=== PATIENT | female | born 1985 | race Caucasian/White ===

== ENCOUNTER → 2020-01-14 09:00 | Outpatient (BNVA) | payer OTHER, SELFPAY | PROVIDERS: PCP Family Medicine; Visit Provider Surgery | DX: Z76.89 Persons encountering health services in other specified circumstances (principal) ==

== ENCOUNTER → 2020-02-18 08:55 | Outpatient (BNVA) | payer OTHER, SELFPAY | PROVIDERS: PCP Family Medicine; Visit Provider Surgery | DX: E66.01 Morbid (severe) obesity due to excess calories (principal); Z68.41 Body mass index [BMI] 40.0-44.9, adult; Z98.84 Bariatric surgery status | CPT/HCPCS: 99212 ==

== ENCOUNTER → 2020-03-19 07:43 | Outpatient (BNVA) | payer OTHER, SELFPAY | PROVIDERS: PCP Family Medicine; Referring Provider Family Medicine; Visit Provider Surgery | DX: E66.9 Obesity, unspecified (principal); Z68.38 Body mass index [BMI] 38.0-38.9, adult; Z71.3 Dietary counseling and surveillance | CPT/HCPCS: Q3014 ==

== ENCOUNTER → 2020-04-23 08:10 | Outpatient (BNVA) | payer OTHER, SELFPAY | PROVIDERS: PCP Family Medicine; Visit Provider Surgery | DX: E66.9 Obesity, unspecified (principal); Z68.38 Body mass index [BMI] 38.0-38.9, adult | CPT/HCPCS: Q3014 ==

== ENCOUNTER → 2020-05-30 08:19 | Outpatient (BNVA) | payer OTHER, SELFPAY | PROVIDERS: PCP Family Medicine; Visit Provider Surgery | DX: E66.9 Obesity, unspecified (principal); Z68.37 Body mass index [BMI] 37.0-37.9, adult | CPT/HCPCS: Q3014 ==

== ENCOUNTER → 2020-06-27 08:35 | Outpatient (BNVA) | payer OTHER, SELFPAY | PROVIDERS: PCP Family Medicine; Visit Provider Surgery | DX: E66.9 Obesity, unspecified (principal); Z68.34 Body mass index [BMI] 34.0-34.9, adult; Z71.3 Dietary counseling and surveillance | CPT/HCPCS: Q3014 ==

== ENCOUNTER → 2020-08-01 08:03 | Outpatient (BNVA) | payer OTHER, SELFPAY | PROVIDERS: PCP Family Medicine; Visit Provider Surgery | DX: E66.9 Obesity, unspecified (principal); Z68.33 Body mass index [BMI] 33.0-33.9, adult; Z71.3 Dietary counseling and surveillance | CPT/HCPCS: Q3014 ==

== ENCOUNTER → 2020-08-25 08:14 | Outpatient (BNVA) | payer OTHER, SELFPAY | PROVIDERS: PCP Family Medicine; Visit Provider Surgery | DX: E66.9 Obesity, unspecified (principal); Z68.33 Body mass index [BMI] 33.0-33.9, adult | CPT/HCPCS: Q3014 ==

== ENCOUNTER → 2020-10-15 07:24 | Outpatient (BNVA) | payer OTHER, SELFPAY | PROVIDERS: PCP Family Medicine; Visit Provider Surgery ==

== ENCOUNTER → 2020-12-18 08:10 | Outpatient (BNVA) | payer OTHER, SELFPAY | PROVIDERS: PCP Family Medicine; Visit Provider Physician Assistant Surgical ==

== ENCOUNTER 2021-01-17 08:19 | Outpatient (REF) | payer BC, SELFPAY ==
[2021-01-17 08:33] LABS: MANUAL DIFF FLAG NO
[2021-01-17 09:25] LABS: Basophils Percent Auto 0.6 % (0-2); Eosinophils Absolute Auto 0.1 X10*3/uL (0.0-0.4); Eosinophils Percent Auto 1.5 % (0-4); Hematocrit 37.9 % (37-47); Hemoglobin 12.4 g/dl (12.0-16.0); Imm Gran Abs Auto 0.01 X10*3/uL (0.00-0.03); Imm Gran Pct Auto 0.2 % (0.0-0.4); Lymphocytes Absolute Auto 2.3 X10*3/uL (1.2-4.9); Mean Corpuscular HGB Conc 32.7 g/dl (31.0-35.0); Mean Corpuscular Hemoglobin 29.2 pg (27.0-33.0); Mean Corpuscular Volume 89.2 fL (80-98); Mean Platelet Volume 10.7 fL (9.4-12.3); Monocytes Absolute Auto 0.3 X10*3/uL (0.1-1.2); Neutrophils Absolute Auto 3.8 X10*3/uL (2.0-8.3); Neutrophils Percent Auto 57.7 % (45-73); Platelet Count 243 X10*3/uL (160-400); Red Blood Count 4.25 X10*6/uL (4.20-5.50); Red Cell Distribution Width 13.2 % (11.0-16.0); White Blood Count 6.6 X10*3/uL (4.8-10.8)
[2021-01-17 09:36] LABS: Estimated Average Glucose 97 mg/dL; Hemoglobin A1C 102.4667 umol/L
[2021-01-17 09:54] LABS: Alanine Aminotransferase 20 U/L (0-31); Albumin Level 3.9 g/dL (3.5-5.0); Alkaline Phosphatase 77 U/L (39-117); Anion Gap 10 (12-20); Aspartate Amino Transferase 18 U/L (5-31); Bilirubin Total 0.8 mg/dL (0.0-1.0); Blood Urea Nitrogen 15 mg/dL (9-16); C Reactive Protein 0.18 mg/dL (< or = 0.50); Calcium 9.1 mg/dL (8.4-10.2); Carbon Dioxide 26 mmol/L (22-29); Chloride 108 mmol/L (96-108); Cholesterol 165 mg/dL; Estimated Glomerular Filt Rate > 60; Glucose Random 89 mg/dL (60-115); HDL Cholesterol 65 mg/dL; Iron 125 mcg/dL (30-160); LDL Cholesterol Calculated 87 mg/dl; Percent Iron Saturation 46 % (15-50); Potassium 4.1 mmol/L (3.3-5.1); Sodium 140 mmol/L (135-145); Total Iron Binding Capacity 270 mcg/dL (228-428); Total Protein 6.5 g/dL (6.5-8.0); Triglycerides 69 mg/dL; Unsaturated Iron Binding 145 ug/dL
[2021-01-17 10:17] LABS: Ferritin 68 ng/mL (10-122); TSH reflex Free T4 0.71 uIU/mL (0.32-4.0); Vitamin D 25-OH Total 25.6 ng/mL (>30)
[2021-01-19 08:26] LABS: Folate 19.4 ng/mL (> or = 4.0); Vitamin B12 294 pg/mL (200-900)
[2021-01-20 16:01] LABS: PTHI 29 pg/mL (14-64)
[2021-01-21 02:46] LABS: Zinc 78 mcg/dL (60-130)
[2021-01-22 11:55] LABS: Vitamin B1 15 nmol/L (8-30)
[2021-01-22 20:42] LABS: Vitamin A 42 mcg/dL (38-98)
== END 2021-01-17 08:20 | disposition home or self-care (01) ==
LOC: HO.LAB 08:19
PROVIDERS: PCP Family Medicine; Visit Provider Physician Assistant Surgical
DX: R63.5 Abnormal weight gain (principal); Z68.31 Body mass index [BMI] 31.0-31.9, adult
CPT/HCPCS: 36415; 80053; 80061; 82306; 82607; 82728; 82746; 83036; 83540; 83970; 84425; 84443; 84590; 84630; 85025; 86140

== ENCOUNTER → 2021-01-22 08:19 | Outpatient (BNVA) | payer BC, SELFPAY | PROVIDERS: PCP Family Medicine; Visit Provider Physician Assistant Surgical ==

== ENCOUNTER → 2021-02-24 08:10 | Outpatient (BNVA) | payer BC, SELFPAY | PROVIDERS: PCP Family Medicine; Visit Provider Physician Assistant Surgical ==

== ENCOUNTER → 2021-03-27 08:21 | Outpatient (BNVA) | payer BC, SELFPAY | PROVIDERS: PCP Family Medicine; Visit Provider Dietitian, Registered | DX: E66.9 Obesity, unspecified (principal) | CPT/HCPCS: 97803 ==

== ENCOUNTER → 2022-09-21 10:58 | Outpatient (BNVA) | payer OTHER, MEDICAID, SELFPAY | PROVIDERS: PCP Family Medicine; Visit Provider Physician Assistant Surgical ==

== ENCOUNTER 2022-09-25 08:31 | Outpatient (REF) | payer OTHER, MEDICAID, SELFPAY ==
[2022-09-25 09:05] LABS: MANUAL DIFF FLAG NO
[2022-09-25 09:39] LABS: Basophils Percent Auto 0.6 % (0-2); Eosinophils Absolute Auto 0.1 X10*3/uL (0.0-0.4); Eosinophils Percent Auto 1.7 % (0-4); Hematocrit 39.9 % (37.0-47.0); Hemoglobin 13.2 g/dl (12.0-16.0); Imm Gran Abs Auto 0.02 X10*3/uL (0.00-0.03); Imm Gran Pct Auto 0.3 % (0.0-0.4); Lymphocytes Absolute Auto 2.4 X10*3/uL (1.2-4.9); Lymphocytes Percent Auto 33.1 % (20-40); Mean Corpuscular HGB Conc 33.1 g/dl (31.0-35.0); Mean Corpuscular Hemoglobin 27.8 pg (27.0-33.0); Mean Corpuscular Volume 84.2 fL (80.0-98.0); Monocytes Absolute Auto 0.5 X10*3/uL (0.1-1.2); Monocytes Percent Auto 6.5 % (2-11); Neutrophils Absolute Auto 4.1 x10*3/uL (2.0-8.3); Neutrophils Percent Auto 57.8 % (45-73); Platelet Count 250 X10*3/uL (160-400); Red Blood Count 4.74 X10*6/uL (4.20-5.50); Red Cell Distribution Width 12.9 % (11.0-16.0); White Blood Count 7.1 X10*3/uL (4.8-10.8)
[2022-09-25 09:47] LABS: Estimated Average Glucose 100 mg/dL; Hemoglobin A1c % 5.1 %
[2022-09-25 10:19] LABS: Alanine Aminotransferase 16 U/L (0-31); Albumin Level 3.8 g/dL (3.5-5.0); Alkaline Phosphatase 92 U/L (39-117); Anion Gap 14 (12-20); Aspartate Amino Transferase 17 U/L (5-31); Bilirubin Total 0.8 mg/dL (0.0-1.0); Blood Urea Nitrogen 13 mg/dL (9-16); C Reactive Protein 0.34 mg/dL (< or = 0.50); Calcium 9.4 mg/dL (8.4-10.2); Carbon Dioxide 22 mmol/L (22-29); Chloride 108 mmol/L (96-108); Cholesterol 195 mg/dL; Estimated Glomerular Filt Rate > 60; Glucose Random 88 mg/dL (60-115); HDL Cholesterol 52 mg/dL; Iron 90 mcg/dL (30-160); LDL Cholesterol Calculated 122 mg/dl; Percent Iron Saturation 31 % (15-50); Potassium 3.8 mmol/L (3.3-5.1); Sodium 140 mmol/L (135-145); Total Iron Binding Capacity 287 mcg/dL (228-428); Triglycerides 108 mg/dL; Unsaturated Iron Binding 197 ug/dL
[2022-09-25 10:41] LABS: Ferritin 22 ng/mL (10-122); TSH reflex Free T4 0.68 uIU/mL (0.32-4.0); Vitamin D 25-OH Total 27.1 ng/mL (>30)
[2022-09-25 10:53] LABS: Folate 15.2 ng/mL (> or = 4.0); Vitamin B12 299 pg/mL (200-900)
[2022-09-25 11:05] LABS: Insulin 12 uU/mL (2-29)
[2022-09-29 05:03] LABS: Zinc 75 mcg/dL (60-130)
[2022-09-29 14:18] LABS: Calcium (PTHI) 8.8 mg/dL (8.6-10.2); PTHI 54 pg/mL (16-77)
[2022-09-30 02:38] LABS: Vitamin A 42 mcg/dL (38-98)
[2022-10-02 12:48] LABS: Vitamin B1 14 nmol/L (8-30)
== END 2022-09-25 08:32 | disposition home or self-care (01) ==
LOC: HO.LAB 08:31
PROVIDERS: PCP Family Medicine; Visit Provider Physician Assistant Surgical
DX: K91.2 Postsurgical malabsorption, not elsewhere classified (principal); Z90.3 Acquired absence of stomach [part of]
CPT/HCPCS: 36415; 80053; 80061; 82306; 82607; 82728; 82746; 83036; 83525; 83540; 83970; 84425; 84443; 84590; 84630; 85025; 86140

== ENCOUNTER → 2022-10-07 13:00 | Outpatient (BNVA) | payer OTHER, MEDICAID, SELFPAY | PROVIDERS: PCP Family Medicine; Visit Provider Counselor Mental Health ==

== ENCOUNTER 2022-10-19 08:22 | Outpatient (AMB) | payer OTHER, MEDICAID, SELFPAY ==
--- NOTE | 2022-10-19 08:34 | MHC.OFFVISWM ---
Intake VS Expanded 10/19/22 08:38 Height 5 ft 4 in Weight 264 lb 12.8 oz BMI 45.4 BP 129/66 Blood Pressure Location Rt brachial Blood Pressure Position Sitting Pulse 57 Pulse Source Pulse Oximeter Temp 97.8 F Temperature Source Temporal Artery Scan Pulse Oximetry 96 Oxygen Delivery Method Room Air Body Fat 124.2 Body Fat Percentage 46.9 Free Fat Mass 140.6 Muscle Mass 133.6 Visceral Mass 14.0 Water Mass 100.8 BMR 2,010 Intake Visit Reasons: (OV) PO LSG 12/04/19 Allergies No Known Allergies [No Known Allergies*] Allergy (Verified 10/19/22 08:41) Medication List - Last Reconciled 10/19/22 by ROBERTO CARLOS Crowe apixaban (Eliquis) 5 mg PO BID cholecalciferol (vitamin D3) 25 mcg PO DAILY escitalopram oxalate 10 mg PO DAILY [Fiber 4 caps PO DAILY] [Hair, Skin, Nails Vitamin 1 tab PO DAILY] [ Vitamin 1 tab PO DAILY] HPI HPI Comments History of Present Illness Details This?is a?37?yo female who is s/p LSG 12/04/2019. Presents for 2 year 11 month post op visit. Weight at last visit on was 265.2 pounds with a BMI of 45.5, weight today is 264.8 pounds, representing a 0.4 pound weight loss with a BMI today of 45.5.? No complaints of nausea, emesis, abdominal pain or reflux, or constipation. Reports she had strep throat, and then was in ER at [facility] last night for a blood clot in her leg. Was off Eliquis until now but will now likely be on it for life. Also met with Debbie, found that helpful. Present meal plan includes: 9am- Pure Protein shake in 8oz 1% or Lactaid milk 1pm- Syrian yogurt or Pure protein bar, can add fruit 4pm- 1/2 scoop shake, or bar, or 2 hardboiled eggs 7pm- dinner of 3oz protein, 3-4oz veg/salad 9pm- bar increased hydration also Exercise routine includes: nothing formal, but has no activity restrictions because of clot PFSH Medical History Intestinal malabsorption Morbid obesity Surgical History History of sleeve gastrectomy Hx of fasciotomy Family History Father No problems noted. Mother Cervical stenosis of spine Depression Anxiety Brother No problems noted. Daughter No problems noted. Social History Alcohol intake: never Patient Tobacco Use Status: Never used Tobacco Physical Exam Vital Signs: Last Vital Signs Temp 97.8 F 10/19/22 08:38 Pulse 57 10/19/22 08:38 BP 129/66 10/19/22 08:38 Pulse Ox 96 10/19/22 08:38 Oxygen Delivery Method Room Air 10/19/22 08:38 BMI result Body Mass Index 45.4 Assessment & Plan Assessment & Plan (1) Status post sleeve gastrectomy: Code(s): Z90.3 - Acquired absence of stomach [part of] (2) Morbid obesity: Code(s): E66.01 - Morbid (severe) obesity due to excess calories (3) Major depressive disorder, recurrent, mild: Code(s): F33.0 - Major depressive disorder, recurrent, mild Plan Pt will continue same meal plan, if not able to have full bar in evening can have a full scoop shake in afternoon to ensure adequate protein intake. Increase exercise as able. Labs reviewed, vitamin D previously supplemented. Will follow up with again next week and plans to try to attend support groups. Next visit with RD per pt preference for ongoing meal plan management, 4-6 weeks. Patient is morbidly obese and is not considered stable at this time. I spent a total of 30 minutes reviewing/updating records, examining the patient and counseling the patient on weight management as detailed above. Coding Level of Care Code Est Pt Level 4 (43072) Diagnoses Status post sleeve gastrectomy Z90.3 Morbid obesity E66.01 Major depressive disorder, recurrent, mild F33.0
[2022-10-19 08:38] VITALS: BP 129/66; PULSE 57; TEMP 36.6; O2SAT 96; BMI 45.4
== END 2022-10-19 09:05 | disposition home or self-care (01) ==
PROVIDERS: PCP Family Medicine; Visit Provider Physician Assistant Surgical
DX: E66.01 Morbid (severe) obesity due to excess calories (principal); Z68.42 Body mass index [BMI] 45.0-49.9, adult; Z90.3 Acquired absence of stomach [part of]; Z98.84 Bariatric surgery status
CPT/HCPCS: 99214

== ENCOUNTER → 2022-10-19 08:22 | Outpatient (BNVA) | payer OTHER, MEDICAID, SELFPAY | PROVIDERS: PCP Family Medicine; Visit Provider Physician Assistant Surgical | DX: Z90.3 Acquired absence of stomach [part of] (principal); E66.01 Morbid (severe) obesity due to excess calories ==

== ENCOUNTER 2022-10-26 13:00 | Outpatient (AMB) | payer OTHER, MEDICAID, SELFPAY ==
--- NOTE | 2022-11-02 16:17 | MHC.WMTHER ---
Intake Intake Visit Reasons: VIDEO PO LSG 12/04/19 Allergies No Known Allergies [No Known Allergies*] Allergy (Verified 10/19/22 08:41) [facility] Medical History Intestinal malabsorption Morbid obesity Surgical History History of sleeve gastrectomy Hx of fasciotomy Family History Father No problems noted. Mother Cervical stenosis of spine Depression Anxiety Brother No problems noted. Daughter No problems noted. Social History Alcohol intake: never Patient Tobacco Use Status: Never used Tobacco Behavioral Health Assessment Weight Management Therapy Therapy Notes Details Pt is almost three years post gastric sleeve surgery. She reported gaining weight starting last year after she had to terminate a . She stated that she never processed that are healed from it. Pt stated that she was in therapy many years ago when her parents . Patient stated that she struggles with family conflict mainly her mother who has limited boundaries, she is raising her daughter alone with no help. Pt stated that at age 14 she was suicidal but her parents did not get her help and told her she was attention seeking. She has taken medication for anxiety and depression. Presenting Concerns Referral Source self and provider Reason for referral anxiety and depression Precipitating Event weight gain, stress, obesity Living Situation Current Living Situation Rent At risk of losing current housing? No Satisfied with current living situation? Yes Comments Pt lives alone with her 4 years old daughter. her mother, step father, and brother live downstairs. She stated that she is looking for a new place to live within the next year. Food/Weight/Diet Expectations of change weight loss, reduction in mental health symptoms History/Relationship with food She reported that she would often binge eat at night. She stated that she cannot fall asleep until she has something to eat. History/Relationship with weight Patient had weight loss surgery in 2019, She has gained weight in the past two years about 65lbs. Binge Eating Do you frequently eat large amounts of food in short periods of time, not feeling physically hungry? Yes Do you feel out of control when you eat a large amount of food in a short period of time? No Do you eat large amounts of food rapidly and typically alone? No Night Eating Do you wake up at least once during the night to eat? No If you wake up in the night, do you find that it is necessary to eat something in order to fall back asleep? No Do you have little or no appetite in the morning and feel very hungry in the evening, often overeating between dinner and when you go to bed? No Social History Family history and relationship Patient stated that she was raised by her mother and father. She is a single and raising her 4 year old daughter. She reported some childhood emotional neglect. Parental/Familial road machine runner obligations 4 year old daughter Developmental history and status no issues known Social support limited. Assessment & Plan Assessment & Plan (1) Major depressive disorder, recurrent, mild: Code(s): F33.0 - Major depressive disorder, recurrent, mild (2) Status post sleeve gastrectomy: Code(s): Z90.3 - Acquired absence of stomach [part of] (3) Obesity (BMI 30.0-34.9): Code(s): E66.9 - Obesity, unspecified Plan Patient is looking to start therapy to help address symptoms of depression, emotional eating, and unresolved trauma. She would benefit from EMDR. Telehealth Telehealth Location of provider rendering services: other Location of patient: other Patient Identification confirmed using: Name, : Yes Telehealth method: video Patient verbally consented to treatment: Yes Patient verbally consented to billing insurance company: Yes Patient informed of any privacy concerns related to visit: Yes Minutes spent on Phone/Video with Pt.: 30 Coding Level of Care Code Tele Psytx 30 mins ([id number]) Diagnoses Major depressive disorder, recurrent, mild F33.0 Status post sleeve gastrectomy Z90.3 Obesity (BMI 30.0-34.9) E66.9 Time Spent (min) 35
== END 2022-11-02 16:17 | disposition home or self-care (01) ==
LOC: HO.HBST 13:30
PROVIDERS: PCP Family Medicine; Visit Provider Counselor Mental Health
DX: F33.0 Major depressive disorder, recurrent, mild (principal); Z90.3 Acquired absence of stomach [part of]; E66.9 Obesity, unspecified
CPT/HCPCS: 90832

== ENCOUNTER → 2022-10-26 13:00 | Outpatient (BNVA) | payer OTHER, MEDICAID, SELFPAY | PROVIDERS: PCP Family Medicine; Visit Provider Counselor Mental Health | DX: F33.0 Major depressive disorder, recurrent, mild (principal); Z90.3 Acquired absence of stomach [part of]; E66.9 Obesity, unspecified ==

== ENCOUNTER 2022-11-15 08:24 | Outpatient (AMB) | payer OTHER, MEDICAID, SELFPAY ==
--- NOTE | 2022-11-15 13:49 | A.OFFWM_ITS ---
Intake Intake Visit Reasons: (OV) PO LSG 12/04/19 Allergies No Known Allergies [No Known Allergies*] Allergy (Verified 10/19/22 08:41) [facility] Medical History Intestinal malabsorption Morbid obesity Surgical History History of sleeve gastrectomy Hx of fasciotomy Family History Father No problems noted. Mother Cervical stenosis of spine Depression Anxiety Brother No problems noted. Daughter No problems noted. Social History Alcohol intake: never Patient Tobacco Use Status: Never used Tobacco Behavioral Health Assessment Weight Management Therapy Therapy Notes Details Patient was tearful in session. She talked about her parents growing up, she lived mostly with dad, was constantly told lies about him by her mother who she has a tumultuous relationship with. Sugey has multiple ongoing small traumas throughout her childhood due to emotional neglect. She is currently trying to make it one more year at her current job until her daughter starts school. She has high stress job due to poor flexibility and often no breaks. She struggles to be present with her daughter due to being with infants all day high demanding job. Patient would like to have better boundaries in her life and reduce stress. Pt is almost three years post gastric sleeve surgery. She reported gaining weight starting last year after she had to terminate a . She stated that she never processed that are healed from it. Pt stated that she was in therapy many years ago when her parents . Patient stated that she struggles with family conflict mainly her mother who has limited boundaries, she is raising her daughter alone with no help. Pt stated that at age 14 she was suicidal but her parents did not get her help and told her she was attention seeking. She has taken medication for anxiety and depression. Presenting Concerns Referral Source self and provider Reason for referral anxiety and depression Precipitating Event weight gain, stress, obesity Living Situation Current Living Situation Rent At risk of losing current housing? No Satisfied with current living situation? Yes Comments Pt lives alone with her 4 years old daughter. her mother, step father, and brother live downstairs. She stated that she is looking for a new place to live within the next year. Food/Weight/Diet Expectations of change weight loss, reduction in mental health symptoms History/Relationship with food She reported that she would often binge eat at night. She stated that she cannot fall asleep until she has something to eat. History/Relationship with weight Patient had weight loss surgery in 2019, She has gained weight in the past two years about 65lbs. Binge Eating Do you frequently eat large amounts of food in short periods of time, not feeling physically hungry? Yes Do you feel out of control when you eat a large amount of food in a short period of time? No Do you eat large amounts of food rapidly and typically alone? No Night Eating Do you wake up at least once during the night to eat? No If you wake up in the night, do you find that it is necessary to eat something in order to fall back asleep? No Do you have little or no appetite in the morning and feel very hungry in the evening, often overeating between dinner and when you go to bed? No Social History Family history and relationship Patient stated that she was raised by her mother and father. She is a single and raising her 4 year old daughter. She reported some childhood emotional neglect. Parental/Familial high pressure firer obligations 4 year old daughter Developmental history and status no issues known Social support limited. Assessment & Plan Assessment & Plan (1) Major depressive disorder, recurrent, mild: Code(s): F33.0 - Major depressive disorder, recurrent, mild (2) Status post sleeve gastrectomy: Code(s): Z90.3 - Acquired absence of stomach [part of] (3) Obesity (BMI 30.0-34.9): Code(s): E66.9 - Obesity, unspecified Plan Patient is looking to start therapy to help address symptoms of depression, emo tional eating, and unresolved trauma. She would benefit from EMDR. Pt will adjust exercise schedule for the first two hours upon awakening or in addition to other exercise to help with stress reduction during the day. Coding Level of Care Code Psytx 45 mins ([id number]) Diagnoses Major depressive disorder, recurrent, mild F33.0 Status post sleeve gastrectomy Z90.3 Obesity (BMI 30.0-34.9) E66.9 Time Spent (min) 40
== END 2022-11-15 13:49 | disposition home or self-care (01) ==
PROVIDERS: PCP Family Medicine; Visit Provider Counselor Mental Health
DX: F33.0 Major depressive disorder, recurrent, mild (principal); Z90.3 Acquired absence of stomach [part of]; E66.9 Obesity, unspecified
CPT/HCPCS: 90834

== ENCOUNTER → 2022-11-15 08:24 | Outpatient (BNVA) | payer OTHER, MEDICAID, SELFPAY | PROVIDERS: PCP Family Medicine; Visit Provider Counselor Mental Health | DX: F33.0 Major depressive disorder, recurrent, mild (principal); Z90.3 Acquired absence of stomach [part of]; E66.9 Obesity, unspecified ==

== ENCOUNTER 2022-11-25 10:10 | Outpatient (AMB) | payer OTHER, MEDICAID, SELFPAY ==
--- NOTE | 2022-11-25 13:37 | A.OFFWM_ITS ---
Intake Intake Visit Reasons: VIDEO PO LSG 12/04/19 Allergies No Known Allergies [No Known Allergies*] Allergy (Verified 10/19/22 08:41) [facility] Medical History Intestinal malabsorption Morbid obesity Surgical History History of sleeve gastrectomy Hx of fasciotomy Family History Father No problems noted. Mother Cervical stenosis of spine Depression Anxiety Brother No problems noted. Daughter No problems noted. Social History Alcohol intake: never Patient Tobacco Use Status: Never used Tobacco Behavioral Health Assessment Weight Management Therapy Therapy Notes Details Patient talked about high stress job and schedule during the week. Her job is very strict with time off and make it difficult for her to take time away. She is continuing to work on caring for herself and getting in daily exercise. Pt is almost three years post gastric sleeve surgery. She reported gaining weight starting last year after she had to terminate a . She stated that she never processed that are healed from it. Pt stated that she was in therapy many years ago when her parents . Patient stated that she struggles with family conflict mainly her mother who has limited boundaries, she is raising her daughter alone with no help. Pt stated that at age 14 she was suicidal but her parents did not get her help and told her she was attention seeking. She has taken medication for anxiety and depression. Presenting Concerns Referral Source self and provider Reason for referral anxiety and depression Precipitating Event weight gain, stress, obesity Living Situation Current Living Situation Rent At risk of losing current housing? No Satisfied with current living situation? Yes Comments Pt lives alone with her 4 years old daughter. her mother, step father, and brother live downstairs. She stated that she is looking for a new place to live within the next year. Food/Weight/Diet Expectations of change weight loss, reduction in mental health symptoms History/Relationship with food She reported that she would often binge eat at night. She stated that she cannot fall asleep until she has something to eat. History/Relationship with weight Patient had weight loss surgery in 2019, She has gained weight in the past two years about 65lbs. Binge Eating Do you frequently eat large amounts of food in short periods of time, not feeling physically hungry? Yes Do you feel out of control when you eat a large amount of food in a short period of time? No Do you eat large amounts of food rapidly and typically alone? No Night Eating Do you wake up at least once during the night to eat? No If you wake up in the night, do you find that it is necessary to eat something in order to fall back asleep? No Do you have little or no appetite in the morning and feel very hungry in the evening, often overeating between dinner and when you go to bed? No Social History Family history and relationship Patient stated that she was raised by her mother and father. She is a single and raising her 4 year old daughter. She reported some childhood emotional neglect. Parental/Familial furniture duster obligations 4 year old daughter Developmental history and status no issues known Social support limited. Assessment & Plan Assessment & Plan (1) Major depressive disorder, recurrent, mild: Code(s): F33.0 - Major depressive disorder, recurrent, mild (2) Status post sleeve gastrectomy: Code(s): Z90.3 - Acquired absence of stomach [part of] (3) Obesity (BMI 30.0-34.9): Code(s): E66.9 - Obesity, unspecified Plan Patient is looking to start therapy to help address symptoms of depression, emo tional eating, and unresolved trauma. She would benefit from EMDR. Pt will adjust exercise schedule for the first two hours upon awakening or in addition to other exercise to help with stress reduction during the day. Telehealth Telehealth Location of provider rendering services: other Location of patient: other Patient Identification confirmed using: Name, : Yes Telehealth method: video Patient verbally consented to treatment: Yes Patient verbally consented to billing insurance company: Yes Patient informed of any privacy concerns related to visit: Yes Minutes spent on Phone/Video with Pt.: 30 Coding Level of Care Code Tele Psytx 30 mins ([id number]) Diagnoses Major depressive disorder, recurrent, mild F33.0 Status post sleeve gastrectomy Z90.3 Obesity (BMI 30.0-34.9) E66.9 Time Spent (min) 30
== END 2022-11-25 13:37 | disposition home or self-care (01) ==
LOC: HO.HBST 10:10
PROVIDERS: PCP Family Medicine; Visit Provider Counselor Mental Health
DX: F33.0 Major depressive disorder, recurrent, mild (principal); Z90.3 Acquired absence of stomach [part of]; E66.9 Obesity, unspecified
CPT/HCPCS: 90832

== ENCOUNTER → 2022-11-25 10:10 | Outpatient (BNVA) | payer OTHER, MEDICAID, SELFPAY | PROVIDERS: PCP Family Medicine; Visit Provider Counselor Mental Health | DX: F33.0 Major depressive disorder, recurrent, mild (principal); Z90.3 Acquired absence of stomach [part of]; E66.9 Obesity, unspecified ==

== ENCOUNTER → 2022-12-03 08:46 | Outpatient (BNVA) | payer OTHER, MEDICAID, SELFPAY | PROVIDERS: PCP Family Medicine; Visit Provider Dietitian, Registered | DX: E66.9 Obesity, unspecified (principal); Z98.84 Bariatric surgery status; Z71.3 Dietary counseling and surveillance | CPT/HCPCS: 97803 ==

== ENCOUNTER 2022-12-16 11:42 | Outpatient (AMB) | payer OTHER, MEDICAID, SELFPAY ==
--- NOTE | 2022-12-16 11:47 | MHC.WMTHER ---
Intake Intake Visit Reasons: VIDEO PO LSG 12/04/19 Allergies No Known Allergies [No Known Allergies*] Allergy (Verified 10/19/22 08:41) [facility] Medical History Intestinal malabsorption Morbid obesity Surgical History History of sleeve gastrectomy Hx of fasciotomy Family History Father No problems noted. Mother Cervical stenosis of spine Depression Anxiety Brother No problems noted. Daughter No problems noted. Social History Alcohol intake: never Patient Tobacco Use Status: Never used Tobacco Behavioral Health Assessment Weight Management Therapy Therapy Notes Details Patient talked about high stress job and schedule during the week. Her job is very strict with time off and make it difficult for her to take time away. She is continuing to work on caring for herself and getting in daily exercise. Patient has started to implement boundaries in her professional and personal life. Pt is almost three years post gastric sleeve surgery. She reported gaining weight starting last year after she had to terminate a . She stated that she never processed that are healed from it. Pt stated that she was in therapy many years ago when her parents . Patient stated that she struggles with family conflict mainly her mother who has limited boundaries, she is raising her daughter alone with no help. Pt stated that at age 14 she was suicidal but her parents did not get her help and told her she was attention seeking. She has taken medication for anxiety and depression. Presenting Concerns Referral Source self and provider Reason for referral anxiety and depression Precipitating Event weight gain, stress, obesity Living Situation Current Living Situation Rent At risk of losing current housing? No Satisfied with current living situation? Yes Comments Pt lives alone with her 4 years old daughter. her mother, step father, and brother live downstairs. She stated that she is looking for a new place to live within the next year. Food/Weight/Diet Expectations of change weight loss, reduction in mental health symptoms History/Relationship with food She reported that she would often binge eat at night. She stated that she cannot fall asleep until she has something to eat. History/Relationship with weight Patient had weight loss surgery in 2019, She has gained weight in the past two years about 65lbs. Binge Eating Do you frequently eat large amounts of food in short periods of time, not feeling physically hungry? Yes Do you feel out of control when you eat a large amount of food in a short period of time? No Do you eat large amounts of food rapidly and typically alone? No Night Eating Do you wake up at least once during the night to eat? No If you wake up in the night, do you find that it is necessary to eat something in order to fall back asleep? No Do you have little or no appetite in the morning and feel very hungry in the evening, often overeating between dinner and when you go to bed? No Social History Family history and relationship Patient stated that she was raised by her mother and father. She is a single and raising her 4 year old daughter. She reported some childhood emotional neglect. Parental/Familial finisher tailor apprentice obligations 4 year old daughter Developmental history and status no issues known Social support limited. Assessment & Plan Assessment & Plan (1) Major depressive disorder, recurrent, mild: Code(s): F33.0 - Major depressive disorder, recurrent, mild (2) Status post sleeve gastrectomy: Code(s): Z90.3 - Acquired absence of stomach [part of] (3) Obesity (BMI 30.0-34.9): Code(s): E66.9 - Obesity, unspecified Plan Patient is looking to start therapy to help address symptoms of depression, emotional eating, and unresolved trauma. She would benefit from EMDR. Pt will adjust exercise schedule for the first two hours upon awakening or in addition to other exercise to help with stress reduction during the day. Telehealth Telehealth Location of provider rendering services: other Location of patient: other Patient Identification confirmed using: Name, : Yes Telehealth method: video Patient verbally consented to treatment: Yes Patient verbally consented to billing insurance company: Yes Patient informed of any privacy concerns related to visit: Yes Minutes spent on Phone/Video with Pt.: 30 Coding Level of Care Code Tele Psytx 30 mins ([id number]) Diagnoses Major depressive disorder, recurrent, mild F33.0 Status post sleeve gastrectomy Z90.3 Obesity (BMI 30.0-34.9) E66.9 Time Spent (min) 30
== END 2022-12-22 14:32 | disposition home or self-care (01) ==
LOC: HO.HBST 11:42
PROVIDERS: PCP Family Medicine; Visit Provider Counselor Mental Health
DX: F33.0 Major depressive disorder, recurrent, mild (principal); Z90.3 Acquired absence of stomach [part of]; E66.9 Obesity, unspecified
CPT/HCPCS: 90832

== ENCOUNTER → 2022-12-16 11:42 | Outpatient (BNVA) | payer OTHER, MEDICAID, SELFPAY | PROVIDERS: PCP Family Medicine; Visit Provider Counselor Mental Health ==

== ENCOUNTER 2022-12-20 13:00 | Outpatient (AMB) | payer OTHER, MEDICAID, SELFPAY ==
--- NOTE | 2022-12-20 13:00 | MHC.AMNUTRGE ---
Intake VS Expanded 12/20/22 14:45 Height 5 ft 4 in Weight 260 lb BMI 44.6 Intake Visit Reasons: VIDEO PO LSG 12/04/19 Marketing Administrator Required: No Allergies No Known Allergies [No Known Allergies*] Allergy (Verified 10/19/22 08:41) HPI Nutrition Presentation Details LSG DOS 12/04/2019 Lowest weight was at 1 year PO at 184# Was LTFU from Feb 2021 - September 2022 and in that time had gained up to 265 - (81 pounds) 3 years post op current weight 260# Reason for consult elevated BMI Diet Assmnt Details Patient was lost to follow-up for several years, we met a few weeks ago to reestablish care and created a new nutrition plan. She reports it is going great and she is feeling very good 6am-7:30- pure protein 1 scoop with 8oz lactaid (33g protein) 11:30am- Pure protein bar or premade shake 3:30pm - fruit/yogurt, bar, or premade shake dinner 7pm 2oz protein, 2oz veg Exercise: walking outside 3x treadmill and 1 day outside . Plus is doing 45 minutes of stretching with her daughter Vitamins: , D3, magnesium (leg cramps) hair. skin, nails . Was unable to tolerate the celebrate multivitamin Dietary counseling reduction Diagnosis Nutrition problem #1 overweight/obesity As related to (etiology) #1 excess energy intake and physical inactivity As evidenced by (sign/symptom) #1 high BMI Monitoring/Goals Nutrition problem monitoring total energy intake, level of knowledge/skill, total PRO intake, total CHO intake and weight Outcome progress progressing Learning/Education Readiness to learn good Stages of change action Most Recent Diabetes Results: No Data to Display [facility] Medical History Intestinal malabsorption Morbid obesity Surgical History History of sleeve gastrectomy Hx of fasciotomy Family History Father No problems noted. Mother Cervical stenosis of spine Depression Anxiety Brother No problems noted. Daughter No problems noted. Social History Alcohol intake: never Patient Tobacco Use Status: Never used Tobacco Assessment & Plan Assessment & Plan (1) Morbid obesity: Code(s): E66.01 - Morbid (severe) obesity due to excess calories Patient Instructions: Patient feels that she is doing great, no changes made. She will work on increasing exercise and follow-up in 1 month Telehealth Telehealth Location of provider rendering services: practice address Location of patient: address on file Patient Identification confirmed using: Name, : Yes Telehealth method: voice only Patient verbally consented to treatment: Yes Patient verbally consented to billing insurance company: Yes Patient informed of any privacy concerns related to visit: Yes Minutes spent on Phone/Video with Pt.: 10 Coding Level of Care Code Nutr Indiv Subseq ([id number]) Diagnoses Morbid obesity E66.01 Time Spent (min) 10
[2022-12-20 14:45] VITALS: BMI 44.6
== END 2022-12-20 14:44 | disposition home or self-care (01) ==
LOC: HO.HBS 13:15
PROVIDERS: PCP Family Medicine; Visit Provider Dietitian, Registered
DX: E66.01 Morbid (severe) obesity due to excess calories (principal)

== ENCOUNTER → 2022-12-20 13:00 | Outpatient (BNVA) | payer OTHER, MEDICAID, SELFPAY | PROVIDERS: PCP Family Medicine; Visit Provider Dietitian, Registered | DX: E66.01 Morbid (severe) obesity due to excess calories (principal); Z68.41 Body mass index [BMI] 40.0-44.9, adult; Z71.3 Dietary counseling and surveillance | CPT/HCPCS: 97803 ==

== ENCOUNTER 2023-01-13 11:39 | Outpatient (AMB) | payer OTHER, SELFPAY ==
--- NOTE | 2023-01-13 12:42 | MHC.WMTHER ---
Intake Intake Visit Reasons: VIDEO PO LSG 12/04/19 Allergies No Known Allergies [No Known Allergies*] Allergy (Verified 10/19/22 08:41) [facility] Medical History Intestinal malabsorption Morbid obesity Surgical History History of sleeve gastrectomy Hx of fasciotomy Family History Father No problems noted. Mother Cervical stenosis of spine Depression Anxiety Brother No problems noted. Daughter No problems noted. Social History Alcohol intake: never Patient Tobacco Use Status: Never used Tobacco Behavioral Health Assessment Weight Management Therapy Therapy Notes Details Patient talked about high stress job and schedule during the week. Her job is very strict with time off and make it difficult for her to take time away. She is continuing to work on caring for herself and getting in daily exercise. Patient has started to implement boundaries in her professional and personal life. She has found that this has made a difference for her. Pt is almost three years post gastric sleeve surgery. She reported gaining weight starting last year after she had to terminate a . She stated that she never processed that are healed from it. Pt stated that she was in therapy many years ago when her parents . Patient stated that she struggles with family conflict mainly her mother who has limited boundaries, she is raising her daughter alone with no help. Pt stated that at age 14 she was suicidal but her parents did not get her help and told her she was attention seeking. She has taken medication for anxiety and depression. Presenting Concerns Referral Source self and provider Reason for referral anxiety and depression Precipitating Event weight gain, stress, obesity Living Situation Current Living Situation Rent At risk of losing current housing? No Satisfied with current living situation? Yes Comments Pt lives alone with her 4 years old daughter. her mother, step father, and brother live downstairs. She stated that she is looking for a new place to live within the next year. Food/Weight/Diet Expectations of change weight loss, reduction in mental health symptoms History/Relationship with food She reported that she would often binge eat at night. She stated that she cannot fall asleep until she has something to eat. History/Relationship with weight Patient had weight loss surgery in 2019, She has gained weight in the past two years about 65lbs. Binge Eating Do you frequently eat large amounts of food in short periods of time, not feeling physically hungry? Yes Do you feel out of control when you eat a large amount of food in a short period of time? No Do you eat large amounts of food rapidly and typically alone? No Night Eating Do you wake up at least once during the night to eat? No If you wake up in the night, do you find that it is necessary to eat something in order to fall back asleep? No Do you have little or no appetite in the morning and feel very hungry in the evening, often overeating between dinner and when you go to bed? No Social History Family history and relationship Patient stated that she was raised by her mother and father. She is a single and raising her 4 year old daughter. She reported some childhood emotional neglect. 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 Assessment & Plan Assessment & Plan (1) Major depressive disorder, recurrent, mild: Code(s): F33.0 - Major depressive disorder, recurrent, mild (2) Status post sleeve gastrectomy: Code(s): Z90.3 - Acquired absence of stomach [part of] (3) Obesity (BMI 30.0-34.9): Code(s): E66.9 - Obesity, unspecified Plan Patient is looking to start therapy to help address symptoms of depression, emotional eating, and unresolved trauma. She would benefit from EMDR. Pt will adjust exercise schedule for the first two hours upon awakening or in addition to other exercise to help with stress reduction during the day. Telehealth Telehealth Location of provider rendering services: other Location of patient: other Patient Identification confirmed using: Name, : Yes Telehealth method: video Patient verbally consented to treatment: Yes Patient verbally consented to billing insurance company: Yes Patient informed of any privacy concerns related to visit: Yes Minutes spent on Phone/Video with Pt.: 35 Coding Level of Care Code Tele Psytx 30 mins (51618) Diagnoses Major depressive disorder, recurrent, mild F33.0 Status post sleeve gastrectomy Z90.3 Obesity (BMI 30.0-34.9) E66.9 Time Spent (min) 35
== END 2023-01-13 12:44 | disposition home or self-care (01) ==
LOC: HO.HBST 11:39
PROVIDERS: PCP Family Medicine; Visit Provider Counselor Mental Health
DX: F33.0 Major depressive disorder, recurrent, mild (principal); Z90.3 Acquired absence of stomach [part of]; E66.9 Obesity, unspecified
CPT/HCPCS: 90832

== ENCOUNTER → 2023-01-13 11:39 | Outpatient (BNVA) | payer OTHER, MEDICAID, SELFPAY | PROVIDERS: PCP Family Medicine; Visit Provider Counselor Mental Health ==

== ENCOUNTER 2025-02-06 10:12 | Outpatient (AMB) | payer OTHER, SELFPAY ==
--- NOTE | 2025-02-06 10:20 | A.OFFVIS_ITS ---
VS Expanded 02/06/25 10:31 BP 122/59 L Blood Pressure Location Rt brachial Blood Pressure Position Sitting Pulse 66 Pulse Source Pulse Oximeter Temp 97.1 F Temperature Source Temporal Artery Scan Pulse Oximetry 100 Oxygen Delivery Method Room Air Height 5 ft 4 in Weight 259 lb 3.2 oz BMI 44.5 Body Fat % 47.3 Body Fat Mass 122.6 Fat Free Mass 136.4 Visceral Fat Rating 14.0 Body Water % 37.7 Body Water Mass 97.6 Muscle Mass/Score 47.2 Basal Metabolic Rate/Score 1,949 Intake Visit Reasons: OV PO LSG 12/04/19 Allergies No Known Allergies (No Known Allergies*) Allergy (Verified 02/06/25 10:31) Medication List - Last Reconciled 02/06/25 by ROBERTO CARLOS Crowe cholecalciferol (vitamin D3) 25 mcg PO DAILY [Fiber 4 caps PO DAILY] [Hair, Skin, Nails Vitamin 1 tab PO DAILY] [ Vitamin 1 tab PO DAILY] HPI Comments Details: This?is a?39?yo F who is s/p LSG 12/04/2019. Presents for 5 year 2 month post op visit. Weight unchanged since last OV 2 years ago. No complaints of nausea, emesis, abdominal pain, or constipation. Takes Prilosec or Tums for reflux. She has a new job working from home for [employer]. She feels like she has better work life balance. She notes she has lost 10lb this past month. Has a uterine fibroid and being considered for hysterectomy. Had previously been on Contrave, tolerated for a month but stopped taking due to ineffectiveness; also had been on phentermine in the past. Present meal plan includes: not following a structured nutrition plan Exercise routine includes: 3x week walks for 90 min while her daughter is at [facility] Medical History Intestinal malabsorption Morbid obesity Surgical History History of sleeve gastrectomy Hx of fasciotomy Family History Father No problems noted. Mother Cervical stenosis of spine Depression Anxiety Brother No problems noted. Daughter No problems noted. Social History (Reviewed 02/06/25 @ 10:31 by JOSE De Leon Alcohol intake: never Patient Tobacco Use Status: Never used Tobacco Assessment & Plan Assessment & Plan (1) Morbid obesity: Code(s): E66.01 - Morbid (severe) obesity due to excess calories Category: Medical (2) Status post sleeve gastrectomy: Code(s): Z90.3 - Acquired absence of stomach [part of] Category: Surgical Plan Pt is interested in starting GLP1. Reviewed contraindications, discussed dosing. Discussed need for adequate protein intake while on GLP1s as well as frequent communication with our office. Pt will check in with me weekly and is aware that subsequent Rx will be dependent on frequent communication. Discussed the importance of a structured high protein meal plan and provided [employer] natalie download info. Labs ordered. RTC 4mo, pt will text me weekly with weight measurements if approved for GLP1. Orders: Orders Complete Blood Count Auto Diff Today Z90.3 - Acquired absence of stomach [part of] Comprehensive Met. Panel Today Z90.3 - Acquired absence of stomach [part of] Vitamin D 25-OH Total Today Z90.3 - Acquired absence of stomach [part of] Ferritin Today Z90.3 - Acquired absence of stomach [part of] C Reactive Protein Today Z90.3 - Acquired absence of stomach [part of] Vitamin B1 Today Z90.3 - Acquired absence of stomach [part of] Vitamin A Today Z90.3 - Acquired absence of stomach [part of] Zinc Today Z90.3 - Acquired absence of stomach [part of] IRON PROFILE Today Z90.3 - Acquired absence of stomach [part of] Hemoglobin A1c Today Z90.3 - Acquired absence of stomach [part of] Insulin Today Z90.3 - Acquired absence of stomach [part of] TSH reflex Free T4 Today Z90.3 - Acquired absence of stomach [part of] Vitamin B12 and Folate Today Z90.3 - Acquired absence of stomach [part of] Lipid Panel Today Z90.3 - Acquired absence of stomach [part of] Medications: New tirzepatide (weight loss) (Zepbound) for 4 weeks 2.5 mg (0.5 mL) subcut QWEEK 2 mL 0RF
[2025-02-06 10:31] VITALS: BP 122/59; PULSE 66; TEMP 36.2; O2SAT 100; BMI 44.5
--- OUTSIDE RECORDS SUMMARY | 2025-02-06 12:39 | XMS_ITS | Clinical Summary ---
Author Organization [facility] Address [address] [place] [phone] Phone Care Team Providers Care Metal Milling Machine Operator Name Role Phone Unavailable Primary Care Provider Unavailabl e Social History Tobacco Use Types Packs/Day Years Used Date Smoking Tobacco: Never Assessed Comments Unknown Sex and Gender Information Value Date Recorded Sex Assigned at Not on file Legal Sex Female 1:26 PM EST Gender Identity Not on file Sexual Orientation Not on file Plan of Treatment Health Maintenance Due Date Last Done Comments MMR Vaccines (1 of 1 - Stand curtis series) 10/08/1987 Varicella Vaccines (1 of 2 - 13+ 2-dose series) 10/08/1999 DTaP,Tdap,and Td Vaccines (1 - Tdap) 2004 Hepatitis B Vaccines (1 of 3 - 19+ 3-dose series) 2005 HPV Vaccines (1 - 3-dose SCD M series) 2013 Influenza Vaccines (#1) 2024 02/07/2018 COVID-19 Vaccine (1 - 2024-2 6 season) 2024 HIB Vaccines Aged Out No longer eligi ble based on patient's age to complete this topic Hepatitis A Vaccines Aged Out No long er eligible based on patient's age to complete this topic IPV Vaccines Aged Out No longer eligi ble based on patient's age to complete this topic Men B Vaccine Aged Out No longer elig ible based on patient's age to complete this topic Meningococcal Vaccine Aged Out No herb rohit eligible based on patient's age to complete this topic Pneumococcal Vaccine Aged Out No long er eligible based on patient's age to complete this topic
--- OUTSIDE RECORDS SUMMARY | 2025-02-06 12:39 | XMS_ITS | Encounter Summary ---
Author Organization [facility] Address Formerly [facility] [address] [place] [phone] Phone Care Team Providers Care Exhaust Tender Name Role Phone Adelaide Cr MANAGEMENT TRAINEE MARKETING Unavailable Matthew Blanc MD Unavailable [phone] Amy Antoine MANAGEMENT TRAINEE MARKETING Unavailable [phone] Be England MD Unavailable Kaykay Newman MD Primary Care Prov ider Neela Berkowitz PA-C Unavailable [phone] Kaykay Newman MD Unavailable + Abigail Pack RN Unavailable Kaykay Newman MD Primary Care Prov ider Encounter Details Date Type Department Care Team (Late st Contact Info) Description 03/16/2021 Procedure Pass OR Admitting Dept - Virtual Department [address] [place], [place] [id number] Social History Tobacco Use Types Packs/Day Years Used Date Smoking Tobacco: Former Cigarettes 0.3 4 1 06/05/2005 - 10/03/2009 Smokeless Tobacco: Never Alcohol Use Standard Drinks/Week Comments Not Currently 0 (1 standard drink = 0.6 oz pur e alcohol) Comments Yes Sex and Gender Information Value Date Recorded Sex Assigned at Female 09/05/2019 12:18 AM EDT Legal Sex Female 9:11 PM EDT Gender Identity Female 09/05/2019 12:18 AM EDT Sexual Orientation Straight 09/05/2019 12 :18 AM EDT 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 file Not on file Not on file documented as of this encounter Plan of Treatment Upcoming Encounters Date Type Department Care Team (Late st Contact Info) Description 02/27/2025 1:20 PM EST Appointment [facility] [address] [place] [address] Silvino Potter MD [address] [place] [address], [address] [place] [address] 02/27/2025 1:30 PM EST Procedure visit [facility] [address] [place] [address] [place] [address] Silvino Potter MD [address] [place] [address], [address] [address] documented as of this encounter Visit Diagnoses Not on filedocumented in this encounter Care Teams Exhaust Tender Relationship Specialty Start Date End Date Kaykay Newman MD [id number] [place] [address] [email or web address] PCP - General Family Medicine 03/17/20 05/06/23 Kaykay Newman MD [address] [place] [address] [email or web address] PCP - General Family Medicine 05/07/23 Adelaide Cr NP [address] [place] [address] Historical LMR Provider 01/26/17 Matthew Blanc MD [address] [facility], [address] [place] [address] Historical LMR Provider 01/26/17 04/18/21 Amy Antoine NP [address] [place] [address] Historical LMR Provider 01/26/17 2 Be England MD [id number] [place] [address] [email or web address] Historical LMR Provider 01/26/17 04/18/21 Neela Berkowitz PA-C [address] [place] [address] [email or web address] Physician Internal Medicine Nurse Practitioner Hematology 03/18/20 Kaykay Newman MD [address] [place] [phone] [email or web address] Insurance Assigned Provider 09/19/21 12/18/22 Abigail Pack RN [address] [place] [address] PHCM Facilities Technician 03/08/22 04/19/22 documented as of this encounter Additional Source Comments The information contained in this document represents components of the legal health record. It is not the complete legal health record.[facility]
--- OUTSIDE RECORDS SUMMARY | 2025-02-06 12:39 | XMS_ITS | Clinical Summary ---
Author Organization Formerly [facility] Address [address] [place] [phone] Phone Care Team Providers Care Iron Guardrail Installer Name Role Phone Neela Berkowitz PA-C Unavailable [phone] Kaykay Newman MD Primary Care Prov ider Allergies No known active allergies Medications bacillus coagulans-inulin 1 billion-250 cell-mg Cap Take 250 mg by mouth daily. Active kinsey.stocking ,thigh,reg,med Misc See Instructions, # 2 each, Refills 2, Tot. Refills 2, Maintenance, Dx: varicose veins with pain surgical, calf length 20-30 mm Hg, 04/08/22 10:43:00 EST, Compound 2 Active omeprazole (PRILOSEC) 20 MG capsule Take 1 capsule by mouth every morning. 5 Active therapeutic multivitamin tablet Take 1 tablet by mouth daily. Active herbal drugs (FIBER DIET ORAL) Take by mouth. Activ e hydrOXYzine HCL (ATARAX) 10 MG tablet 4 025 Discontin ued(No longer taking) CONTRAVE 8-90 mg TbER per tablet PLEASE SEE ATTACHED FOR DETAILED DIRECTIONS 5 025 Discontin ued(No longer taking) Active Problems Problem Noted Date Diagnosed Date Right ovarian cyst 09/26/2023 Overview (09/26/2023): 4.5cm septated cyst right ovary 09/07/23 Superficial thrombophlebitis 09/19/2023 Migraine 05/28/2022 Obesity 11/07/2020 Overview (09/26/2023): Gastric sleeve done 11/2019 Assessment & Plan (11/07/2020 12:06 PM EDT): Still losing weight Pelvic pain 11/07/2020 Assessment & Plan (11/07/2020 12:54 PM EDT): Pelvic pain, groin pain, lower back pain, cramping constant daily, worse with walking. However the discomfort has not imrpoved with stopping, in fact it continues to increase. She has been in touch with surgeon, but not yet seen in person. She also notes sensation of incomplete emptying, still feels has to void after just voiding. Her discomfort is overall not sever, but more of an annoyance/discomfort. Exam benign, seems more pelvic bones rather than internal that she indicates. I suspect MSK issue possibly related to weight loss. To r/o ovarian issue, a pelvic US is offered and she would like to do this. test today is negative. Otherwise I suggest to her to work on core and hip strengthening (she is walking 2 hours daily for exercise), consider PT, and also check in with surgeon Pain and swelling of lower extremity, right 03/13 Polycystic ovarian syndrome 08/22/2017 Assessment & Plan (11/07/2020 12:07 PM EDT): Periods used to be irregular, however after some weight loss they became regular Chronic venous hypertension (idiopathic) with other complications of right lower extremity 05/27/2017 Resolved Problems Problem Noted Date Diagnosed Date Resolved Date Contraceptive education 11/07/202009/09 Assessment & Plan (11/07/2020 12:58 PM EDT): Would like to concieve in the future, but not now. Began on OCPs, used for 3 months, stopped 1 month ago. Not prescribed by our practice. She has family hx of VTE but had a negative personal eval/w/u. Could consider contraception which does not contain estrogen, to be safer care and examinat ion immediately after delivery 04/07/2018 11/07/2020 Elevated blood pressure affe cting in third trimester, antepartum 04/05/2018 9 Overview (04/05/2018): 3 Mildly elevated blood pressures during induction. No symptoms Negative P:C ratio on 03/31 Labs ordered at 10:19 on 04/05 Normal Full-term premature rupture of membranes 04/04/2018 04/17/2018 Overview (04/05/2018): 04/04 0900 SROM, clear fluid 1430 SROM confirmed SVE 1/50/-3 2030 Readmitted 2200 Miso 04/05 0415 Pitocin started 0645 Pitocin turned off. Unable to trace contractions well. Patient reporting contractions every 2 minutes. Then spaced out to every 4-5 minutes 0905 pitocin restarted 1140 SVE 2/90/-1, vertex 1600 SVE 2/100/-1 1719 Stadol and benadryl A: - Early labor - SROM, clear fluid - Vertex confirmed with U/S - GBS pos - Cat I EFM, contractions q 2-3 minutes, pitocin at 11 mu - Afebrile, no signs of maternal infection P: - Consulted with Dr. Hammond regarding pain control options. OK to give another dose of stadol 1mg IV. Ordered. - GBS prophylaxis - Continue to titrate pitocin per protocol - Continuous monitoring - Will re-assess in 2 hours or sooner PRN. Normal intrauterine , antepartum 04/04/2018 04/17/2018 Positive GBS test 03/17/2018 04/17/2018 Overview (04/05/2018): Resistant to clinda and erythromycin Neither pt nor pt's mom remember adverse PCN rxn in childhood Will treat with Ancef Varicose veins during , antepartum 10/17/2017 05/12/2018 Encounter for supervision of normal first in second trimester 08/22/2017 05/12/2018 Overview (03/17/2018): CNM Had flu vaccine at work Childbirth Ed? Group PN care? Y Rh pos Tdap * Hgb 11.3 GTT 102 GBS pos PPBC * Decl NT testing Obesity affecting in first trimester 08/22/2017 04/17/2018 Overview (08/22/2017): o Hgb A1C or glucose tolerance test o Nutr counseling o 10-20lb weight gain o Growth sono q 4 wks if fundal height not reliable, after 28 weeks o Induction only if indicated o PP lovenox according to guidelines Varicose veins of right lowe r extremity with edema 05/27/2017 05/12/2018 Assessment & Plan (05/27/2017 11:38 AM EST): CEAP C3, VCSS 6 as a disease in the right. Significant reflux throughout the greater saphenous vein and the anterior branch. At this point we are going to proceed with ablation. Stockings have not completely provided relief. Left leg asymptomatic. We will set up for right leg. Encounter for gynecological examination without abnormal finding 04/05/2017 08/22/2017 Screen for STD (sexually transmitted disease) 04/05/20 17 02/08/2018 Unwanted 3 Encounter for insertion of i ntrauterine contraceptive device (IUD) 09/26/2023 Encounters Date Type Department Care Team Description 01/30/2025 10:00 AM EDT Office Visit [facility] [address] [place] [address] [place] [address] Silvino Potter MD Encounter for gynecological examination without abnormal finding (Primary Dx); Intramural leiomyoma of uterus; Vaginal bleeding; Screening for cervical cancer from Last 3 Months Immunizations Immunization Administration Dates Next Due COVID-19 (Pre-01/31) Moderna Vaccine, mRNA, PF 07/31/2020,07/03/2020 DTaP 10/22/1991, 9,04/13/1987,02/12,1986 HPV, unspecified formulation 03/09/2007,11/02/19 07,08/31/2006 Hepatitis A, Adult 03/30/2017,07/28/2016 Hepatitis B, unspecified formulation 04/21/1998, 11/18/1997 Hib, unspecified formulation 10/11/1988 Hib-Hep B 12/19/1997 INFLUENZA, SPLIT VIRUS, TRIVALENT PF 11/23/2015 INFLUENZA, SPLIT VIRUS, TRIV ALENT W/ PRESERVATIVE IM 11/23/2012,10/11/2011 IPV 10/22/1991, 9,02/12/1987,12/13 Influenza Quadrivalent Prese rvative Free IM 03/11/2022,01/23/2021,01/05/2020,01/27,11/17/2017,11/18/2016 Influenza Quadrivalent w/ Pr eservative IM 02/07/2021,01/05/2020 Influenza, Unspecified Formulation 01/27/2019,,11/05/2014 Influenza, whole 03/29/2003,03/22/2002 MMR 08/12/1998,01/16/1988 Meningococcal MCV4P 08/31/2006 Pneumococcal polysaccharide PPSV23 08/25/2018 Tdap 02/10/2018,07/22/2015,03/09/2007 Tetanus toxoid, unspecified formulation 08/12/1998 Family History Medical History Relation Comments No Known Problems Brother 1 No Known Problems Brother 2 Deep vein thrombosis Father Breast cancer Maternal Grandmother Hypertension Mother Hypertension Paternal Grandmother Relation Status Comments Brother 1 Brother 2 Father Alive Maternal Grandmother Mother Alive Paternal Grandmother Social History Tobacco Use Types Packs/Day Years Used Date Smoking Tobacco: Former Cigarettes 0.3 4 1 06/05/2005 - 10/03/2009 Smokeless Tobacco: Never Tobacco Cessation:Counseling Given: Not Answered Alcohol Use Standard Drinks/Week Comments Not Currently 0 (1 standard drink = 0.6 oz pur e alcohol) Education Answer Date Recorded Are you interested in more education? Not on reji e 08/06/2022 Are you concerned about learning? Not on file 08/06/2022 No 08/06/2022 No 08/06/2022 Digital Access Answer Date Recorded No 09/03/2022 No 09/03/2022 Reliable internet access at home? Not on file 09/03/2022 Device with a working camera? Not on file Intimate Partner Violence Answer Date R ecorded Are you denied basic needs s uch as food, clothing, or medical care? No 05/07/2023 In the past 12 months have y ou been in a relationship with a person who hurts, threatens, or tries to control you? No 05/07/2023 Are you denied basic needs s uch as food, clothing, or medical care? No 05/07/2023 In the past 12 months have y ou been in a relationship with a person who hurts, threatens, or tries to control you? 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 Not on file Not on file Last Filed Vital Signs Vital Sign Reading Time Taken Comments Blood Pressure 130/76 01/30/2025 10:11 AM EDT Pulse 80 08/11/2024 12:07 PM EDT Temperature 36.8 C (98.2 F) 08/11/2024 12:07 PM EDT Respiratory Rate 14 08/11/2024 12:07 PM EDT Oxygen Saturation 98% 08/11/2024 12:07 PM EDT Inhaled Oxygen Concentration - - Weight 121.1 kg (267 lb) 01/30/2025 10:11 AM EDT Height 162.6 cm (5' 4 ) 08/11/2024 12:07 PM EDT Body Mass Index 45.83 08/11/2024 12:07 PM EDT Plan of Treatment Upcoming Encounters Date Type Department Care Team (Late st Contact Info) Description 02/27/2025 1:20 PM EST Appointment [facility] [place] [address] [place] [address] [place] [address] Silvino Potter MD [address] [facility], [address] [place] [address] 02/27/2025 1:30 PM EST Procedure visit [facility] [address] [place] [address] [place] [address] Silvino Potter MD [address] [place] [address], [address] [place] [address] [email or web address] Health Maintenance Due Date Last Done Comments DEPRESSION SCREENING 1998 INFLUENZA VACCINE (#1) 2024 , 02/07/2021, 01/23/2021, Additional history exists COVID-19 VACCINE (2024- season) 2024 02/07/2021, 07/31/2020, 07/03/2020 SCREENING FOR DIABETES 04/20/2027 04/20/2024, 2022 PAP SMEAR 01/31/2028 01/30/2025, 10/11, 04/05/2017, Additional history exists Adult Td,Tdap Booster 02/11/2028 02/10/2018 , 07/22/2015, 03/09/2007 HIB VACCINES Completed 12/19/1997, 10/11/1988 MENINGOCOCCAL VACCINES (ACWY) Aged Out 08/31/2006 No longer eligible based on patient's age to complete this topic HEPATITIS A VACCINES Aged Out 03/30/2017, 07/29/19 17 No longer eligible based on patient's age to complete this topic PNEUMOCOCCAL VACCINES (0-49 years) Aged Out 08/25/2018 No longer eligible based on patient's age to complete this topic HIV ONE-TIME SCREENING (18-65 YEARS) Completed 03/27/2021 HEPATITIS C SCREENING Completed 08/24/2021 , 03/27/2021, 08/22/2017, Additional history exists SMOKING STATUS SCREENING (Once After 26 Yrs) Completed 01/30/2025 MENINGOCOCCAL VACCINES (B) Aged Out N o longer eligible based on patient's age to complete this topic Medical Devices Implanted Type Area Production Cell Leader Device Identifier Shelf Expiration Date Model / Serial / Lot System Kyleena 19.5mg Levonorgestrel-R eleasing Intrauterine - [id number] Implanted:Qty: 1 on 03/16/2021 by Alan Metzger MD at [facility] Uterus [employer] 05/12/2021 [id number] / / [id number] Procedures Procedure Name Priority Date/Time Associated Diagnosis Comments HEPATITIS C ANTIBODY, QUALITATIVE Routine 03/27/2021 9:35 AM EST Routine screening for STI (sexually transmitted infection) PAP TEST Routine 11/07/2020 12:00 AM EDT from Last 3 Months or Most Recently Relevant to Health Maintenance Results * Hepatitis C antibody, qualitative (03/27/2021 9:35 AM EST) HCV NON-REACTIV E NON-REACTI VE [facility] Blood 03/27/2021 9:35 AM EST 03/27/2021 9:40 AM EST us Gloria Floyd MD LAB BLOOD ORDERABLES Final Result Performing Organization Address City/State/[facility] Co de Phone Number [address] [address] * Pap Smear (11/07/2020 12:00 AM EDT) 11/07/2020 11/10/2020 8:2 1 AM EDT Narrative SEE NARRATIVE - 11/12/2020 2:04 PM EDT [address] [address] [employer]ap[employer] Consultant: Jennifer White MD MATHEMATICIAN Cytology Report FINAL DIAGNOSIS A. PAP SMEAR (SUREPATH) CE: SPECIMEN ADEQUACY: Satisfactory for evaluation; transformation zone present. INTERPRETATION: NEGATIVE FOR INTRAEPITHELIAL LESION OR MALIGNANCY. Reactive changes. Electronically Signed Out By: RAYMON Sandhu MD(ASCP) By his/her signature above, the pathologist listed as making the Final Diagnosis certifies that he/she has personally reviewed this case and confirmed or corrected the diagnosis. The Pap test is a screening test primarily for squamous cancers and precursors and has associated false-negative and false-positive results. New technologies such as liquid-based preparations may decrease but will not eliminate all false-negative results. Regular sampling and follow-up of unexplained clinical signs and symptoms are recommended to minimize false negative results. PROCEDURES/ADDENDA HPV Testing (Requested) Ordered Date: 11/10/2020 A. PAP SMEAR (SUREPATH) CE: Human Papilloma Virus Test Negative for high-risk human papillomavirus types 16, 18, 45 and the Other high risk probe set (Includes 31, 33, 35, 39, 51, 52, 56, 58, 59, 66, 68) by Anil [email or web address] Onclarity HR-HPV analysis. Clinical correlation is advised. This HPV test was performed at [facility], [address] [place] [address]. This test has been FDA approved for SurePath cervical cytology specimens. The accuracy and precision of this test for all other specimen sources has been verified in the Cytopathology Laboratory of the [facility] and has not been cleared or approved by the U.S. Food and Drug Administration. Clinical correlation is advised. CLINICAL HISTORY Date of Last Menstrual Period: Not Provided Menstrual History: Unknown Other Clinical Conditions: Screening Pap SPECIMEN SOURCE A: PAP SMEAR (SUREPATH) CE Patient Name: SUGEY SKAGGS : 1985 (Age: 35) Sex: F Institution: [facility] Location: [facility] Date of Collection: 11/07/2020 Date of Reported: 11/12/2020 09:36 Results to: Gloria Floyd MD Gloria Floyd MD CYTOLOGY ORDERABLES Edited Result - Final SEE NARRATIVE from Last 3 Months or Most Recently Relevant to Health Maintenance Insurance [employer] PPO [facility] NET PARTIAL CIGNA PPO [facility] NET PARTIAL CIGNA PPO [facility] NET PARTIAL CIGNA PPO [facility] S[facility] NET PARTIAL CIGNA PPO [facility] NET PARTIAL [facility] PPO [facility] NET PARTIAL Advance Directives For more information, please contact: [phone] (9AM - 5PM [facility], Tuesday-Tuesday) Documents on File Type Date Recorded Patient Account Executive Expl anation Healthcare Proxy 04/10/2018 1:52 PM * Full Code (Presumed) (Latest Code Status on File) Date Activated Date Inactivated Comments 04/05/2018 10:40 PM 04/07/2018 4:17 PM * Full Code (Presumed) Date Activated Date Inactivated Comments 04/04/2018 8:36 PM 04/05/2018 10:40 PM * Full Code (Presumed) Date Activated Date Inactivated Comments 04/04/2018 4:05 PM 04/04/2018 6:29 PM Care Teams Iron Guardrail Installer Relationship Specialty Start Date End Date Kaykay Newman MD [address] [place] [phone] [email or web address] PCP - General Family Medicine 05/07/23 Neela Berkowitz PA-C [address] [place] [address] [email or web address] Physician Manager Mail Hematology 03/18/20 Additional Source Comments The information contained in this document represents components of the legal health record. It is not the complete legal health record.[facility]
--- OUTSIDE RECORDS SUMMARY | 2025-02-06 12:39 | XMS_ITS | Encounter Summary ---
Author Organization [facility] Address [facility] [employer] [facility] [address] [place] [phone] Phone Care Team Providers Care Oyster Sorter Name Role Phone Kaykay Newman MD Primary Care Prov ider Neela Berkowitz PA-C Unavailable [phone] Kaykay Newman MD Unavailable + Abigail Pack RN Unavailable Kaykay Newman MD Primary Care Prov ider Encounter Details Date Type Department Care Team (Late st Contact Info) Description 07/07/2021 Procedure [facility], Ct Scan - [address] [address] Social History Tobacco Use Types Packs/Day Years [...] 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 Not on file Not on file documented as of this encounter Plan of Treatment Upcoming Encounters Date Type Department Care Team (Late st Contact Info) Description 02/27/2025 1:20 PM EST Appointment [facility] [employer], [address] [place] [address] Silvino Potter MD [address] [place] [address], [address] [address] 02/27/2025 1:30 PM EST Procedure visit [facility] [address] [place] [address] [place] [address] Silvino Potter MD [address] [place] [address], [address] [address] documented as of this encounter Visit Diagnoses Not on filedocumented in this encounter Care Teams Oyster Sorter Relationship Specialty Start Date End Date Kaykay Newman MD [email or web address] PCP - General Family Medicine 03/17/20 05/06/23 Kaykay Newman MD [address] [place] [phone] [email or web address] PCP - General Family Medicine 05/07/23 Neela Berkowitz PA-C [address] [place] [address] Physician Ambulance Officer Hematology 03/18/20 Kaykay Newman MD [address] [place] [phone] [email or web address] Insurance Assigned Provider 09/19/21 12/18/22 Abigail Pack RN [address] [place] [address] [facility] Sheep [employer]er 03/08/22 04/19/22 documented as of this encounter Additional Source Comments The information contained in this document represents components of the legal health record. It is not the complete legal health record.[facility]
--- OUTSIDE RECORDS SUMMARY | 2025-02-06 12:39 | XMS_ITS | Encounter Summary ---
Author Organization [facility] Address [address] [place] [address] [place] [phone] Phone Care Team Providers Care Final Assembly Inspector Name Role Phone Kaykay Newman MD Primary Care Prov ider Neela Berkowitz PA-C Unavailable [phone] Kaykay Newman MD Unavailable + Abigail Pack RN Unavailable Kaykay Newman MD Primary Care Prov ider Reason for Referral * MRI/CAT Scan - Closed Specialty Diagnoses / Procedures Referred By Contmarifer t Referred To Contact Radiology Diagnoses Abdominal pain, unspecified abdominal location Procedures CT Abdomen/Pelvis Talia Valentin MD Phone: tel: fax: [email or web address] Referral ID Status Reason Start Date Expiration Date Visits Re quested Visits Authorized [id number] Closed 07/07/2021 07/07/2022 1 1 Encounter Details Date Type Department Care Team (Late st Contact Info) Description 07/07/2021 Transcribe Orders [facility] Department [address] [place] [address] [phone] Talia Valentin MD [address] [place] [phone] Abdominal pain, unspecified abdominal location (Primary Dx) Social History Tobacco Use Types Packs/Day Years [...] 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 Not on file Not on file documented as of this encounter Plan of Treatment Upcoming Encounters Date Type Department Care Team (Late st Contact Info) Description 02/27/2025 1:20 PM EST Appointment [facility] [address] [place] [address] Silvino Potter MD [address] [place] [address], [address] [address] [email or web address] 02/27/2025 1:30 PM EST Procedure visit [facility] [address] [place] [address] [place] [address] Silvino Potter MD [address] [place] [address], [address] [address] [email or web address] documented as of this encounter Results * CT ABDOMEN/PELVIS WITH CONTRAST (07/10/2021 12:11 PM EDT) Anatomical Region Laterality Modality Abdomen, Pelvis Computed Tomogra phy 07/10/2021 2:03 PM EDT Impressions 07/10/2021 2:09 PM EDT No evidence of colitis or diverticulitis. Small fat-containing umbilical hernia. Narrative 07/10/2021 2:[address] ABDOMEN/PELVIS WITH CONTRAST TECHNIQUE: Multidetector-row CT of the abdomen and pelvis was performed after administration of intravenous contrast using tailored dose modulation techniques. Images were reconstructed in the axial, coronal, and sagittal planes. COMPARISON: None FINDINGS: Lower Chest: No consolidation or pleural effusions. Liver: No focal lesions. Biliary: No biliary ductal dilatation. Spleen: No splenomegaly or focal lesions. Pancreas: No masses or ductal dilatation. Adrenal Glands: No nodules. Kidneys/Ureters: No solid masses, stones, or hydronephrosis. Bowel: Status post gastric surgery. No distention or wall thickening. Appendix unremarkable. Peritoneum/Retroperitoneum: Small fat-containing umbilical hernia. Trace free fluid likely physiologic. Lymph Nodes: No lymphadenopathy. Pelvic Organs/Bladder: Corpus luteum noted in the left ovary. Bladder unremarkable Vessels: No abdominal aortic aneurysm. Bones/Soft Tissues: No destructive osseous lesions. Procedure Note Noah Carias MD, PER[facility] - 07/10/2021 CT ABDOMEN/PELVIS WITH CONTRAST TECHNIQUE: Multidetector-row CT of the abdomen and pelvis was performedafter administration of intravenous contrast using tailored dosemodulation techniques. Images were reconstructed in the axial, coronal,and sagittal planes. COMPARISON: None FINDINGS: Lower Chest: No consolidation or pleural effusions. Liver: No focal lesions. Biliary: No biliary ductal dilatation. Spleen: No splenomegaly or focal lesions. Pancreas: No masses or ductal dilatation. Adrenal Glands: No nodules. Kidneys/Ureters: No solid masses, stones, or hydronephrosis. Bowel: Status post gastric surgery. No distention or wall thickening.Appendix unremarkable. Peritoneum/Retroperitoneum: Small fat-containing umbilical hernia. Tracefree fluid likely physiologic. Lymph Nodes: No lymphadenopathy. Pelvic Organs/Bladder: Corpus luteum noted in the left ovary. Bladderunremarkable Vessels: No abdominal aortic aneurysm. Bones/Soft Tissues: No destructive osseous lesions. IMPRESSION: No evidence of colitis or diverticulitis. Small fat-containing umbilical hernia. us Talia Valentin MD IMG CT ABD/PELVIS Final Res ult documented in this encounter Visit Diagnoses Diagnosis Abdominal pain, unspecified abdominal location- Primary Abdominal pain, unspecified abdominal location documented in this encounter Care Teams Final Assembly Inspector Relationship Specialty Start Date End Date Kaykay Newman MD [email or web address] PCP - General Family Medicine 03/17/20 05/06/23 Kaykay Newman MD [address] [place] [phone] [email or web address] PCP - General Family Medicine 05/07/23 Neela Berkowitz PA-C [address] [place] [phone] Physician Machinery Dismantler Hematology 03/18/20 Kaykay Newman MD [address] [place] [address] [email or web address] Insurance Assigned Provider 09/19/21 12/18/22 Abigail Pack, HUGH [address] [place] [phone] [employer] Bed [employer]ber 03/08/22 04/19/22 documented as of this encounter Additional Source Comments The information contained in this document represents components of the legal health record. It is not the complete legal health record.[facility]
== END 2025-02-06 10:56 | disposition home or self-care (01) ==
LOC: HO.HBS 10:13
PROVIDERS: PCP Family Medicine; Visit Provider Physician Assistant Surgical
DX: E66.01 Morbid (severe) obesity due to excess calories (principal); Z90.3 Acquired absence of stomach [part of]
CPT/HCPCS: 99214